=== PATIENT | male | born 1975 | race Caucasian/White ===

== ENCOUNTER 2017-12-07 07:46 | Emergency (ER) | payer OTHER ==
[~2017-12-07] VITALS: Ht 185.4 cm; Wt 85.0 kg
[2017-12-07] MEDS ORDERED: PRIL20TA2 PO (07:57)
[2017-12-07 07:58] VITALS: BP 118/71; PULSE 89; RESP 16; TEMP 97.8; O2SAT 98
--- NOTE | 2017-12-07 08:27 | PD ---
HPI . Forehead laceration Chief Complaint: Head Injury Time Seen by Provider: 08:21 Travel History International Travel<30 days: No Contact w/Intl Traveler<30days: No Traveled to known affect area: No History of Present Illness HPI This patient presents to us by EVAC with the chief complaint of a laceration on his forehead. The laceration has been bleeding profusely. The patient admits to alcohol consumption and states that he is unsure as to what exactly cut his head. He thinks that he banged it on something. He does not know the date of his last tetanus shot. The laceration is pretty small but bleeding is not controlled. The incident occurred just prior to presentation. [facility] Past Medical History Medical History: Denies Significant Hx Diminished Hearing: No Tetanus Vaccination: > 5 Years Influenza Vaccination: No Social History Alcohol Use: Yes (OCASSIONALLY) Tobacco Use: Yes (10 CIGARRETTES PER DAY ) Substance Use: No Allergies-Medications (Allergen,Severity, Reaction): Coded Allergies: strawberry (Verified Allergy, Unknown, HIVES, 12/07/17) Reported Meds & Prescriptions Reported Meds & Active Scripts Active Reported Prilosec (Omeprazole Magnesium) 20 Mg Tab 20 Mg PO DAILY Review of Systems Except as stated in HPI: all other systems reviewed are Neg Eyes: No: Blurred Vision HENT: Positive: Headaches Gastrointestinal: No: Nausea, Vomiting Physical Exam Narrative GENERAL: He comes in on the stretcher per EVAC sitting up awake and alert but covered with blood. SKIN: Warm and dry. 2 cm laceration on the forehead. Bleeding is not controlled. HEAD: Normocephalic/atraumatic. EYES: Pupils are equal. Extraocular movements are intact. NECK: Normal range of motion. Nontender. CARDIOVASCULAR: Regular rate and rhythm. RESPIRATORY: Nonlabored respirations. MUSCULOSKELETAL: Atraumatic. NEUROLOGICAL: Nonfocal. PSYCHIATRIC: Appropriate mood and affect. Data Data Last Documented VS Vital Signs Date Time Temp Pulse Resp B/P (MAP) Pulse Ox O2 Delivery O2 Flow Rate FiO2 12/07/17 08:00 89 17 99 Room Air 12/07/17 07:58 97.8 118/71 (87) Orders Orders Tetanus/Diphtheria Tox Adult (Tetanus/Di (12/07/17 08:30) Ct Brain W/O Iv Contrast(Rout) (12/07/17 08:21) MDM Medical Decision Making Medical Screen Exam Complete: Yes Emergency Medical Condition: Yes Differential Diagnosis Differential diagnosis includes but is not limited to skin laceration, muscular laceration, tendon laceration, neurovascular laceration. Narrative Course This patient presents with a small, 2 cm long, forehead laceration but bleeding is not controlled. The wound was quickly sutured and bleeding is now controlled. Tetanus will be updated. Patient is intoxicated. He does not know the mechanism of his injury. Therefore, a CT of his brain will be done. Last Impressions Head CT 12/07/17 0821 Signed Impressions: Service Date/Time: Thursday, December 07, 2017 08:33 - CONCLUSION: No acute disease. No evidence of acute infarct, hemorrhage, mass or edema. Live Zamarripa MD Diagnosis Primary Impression: Forehead laceration Qualified Codes: S01.81XA - Laceration without foreign body of other part of head, initial encounter Additional Impression: Acute alcohol intoxication Qualified Codes: F10.929 - Alcohol use, unspecified with intoxication, unspecified Patient Instructions: Facial Laceration (ED), General Instructions Additional Instructions: Clean the wound twice daily with soap and water. Apply a thin layer of Neosporin ointment after you wash it. See your doctor in 5 days for suture removal. Seek care sooner for redness, drainage, warmth, unusual pain. Disposition: 01 DISCHARGE HOME Condition: Stable Reny Castaneda MD Dec 07, 2017 08:27
[2017-12-07] MEDS ORDERED: TETANUS/DIPHTHERIA TOXOID ADULT 0.5 ML VIAL IM ONE (08:30)
--- NOTE | 2017-12-07 08:55 | RADRPT ---
EXAM DATE/TIME: 12/07/2017 08:33 [place] COMPARISON: No previous studies available for comparison. INDICATIONS : Fell and hit forehead. RADIATION DOSE: 34.59 CTDIvol (mGy) MEDICAL HISTORY : None SURGICAL HISTORY : None. ENCOUNTER: Initial ACUITY: 1 day PAIN SCALE: 3/10 LOCATION: Bilateral cranial TECHNIQUE: Multiple contiguous axial images were obtained of the head. Using automated exposure control and adj ustment of the mA and/or kV according to patient size, radiation dose was kept as low as reasonably a chievable to obtain optimal diagnostic quality images. DICOM format image data is available electro nically for review and comparison. FINDINGS: CEREBRUM: The ventricles are normal for age. No evidence of midline shift, mass lesion, hemorrhage or acute in farction. No extra-axial fluid collections are seen. POSTERIOR FOSSA: The cerebellum and brainstem are intact. The 4th ventricle is midline. The cerebellopontine angle i s unremarkable. EXTRACRANIAL: The visualized portion of the orbits is intact. SKULL: The calvaria is intact. No evidence of skull fracture. CONCLUSION: No acute disease. No evidence of acute infarct, hemorrhage, mass or edema. Live Zamarripa MD on December 07, 2017 at 8:52 Board Certified Radiologist. This report was verified electronically.
[2017-12-07 09:18] VITALS: BP 124/78; TEMP 97.8
== END 2017-12-07 09:20 | disposition home or self-care (01) ==
LOC: NEPC 07:46
DX: S01.81XA Laceration without foreign body of other part of head, initial encounter (principal); F10.929 Alcohol use, unspecified with intoxication, unspecified; F17.210 Nicotine dependence, cigarettes, uncomplicated; X58.XXXA Exposure to other specified factors, initial encounter; Z23 Encounter for immunization
CPT/HCPCS: 12011; 70450; 90471; 90714